=== PATIENT | male | born 1940 | race Caucasian/White ===

== ENCOUNTER 2016-04-02 07:55 | Emergency (ER) | payer MEDICARE, OTHER ==
[~2016-04-02] VITALS: Ht 162.6 cm; Wt 68.0 kg
[2016-04-02 07:59] VITALS: Ht 162.6 cm; Wt 68.0 kg
--- NOTE | 2016-04-02 08:57 | RADRPT ---
PROCEDURE: XR Chest 1 View. CLINICAL INDICATION: Cough TECHNIQUE: AP view of the chest were obtained. COMPARISON: None. FINDINGS: The heart size is within normal limits. Calcified atherosclerosis is noted in the aorta. The lungs are hyperexpanded. No consolidations are identified. No pneumothorax is seen. Atelectasis is noted at the lung bases. Osseous structures are intact. IMPRESSION: Calcified atherosclerosis in the aorta. Hyperexpanded lungs. Minimal atelectasis at the lung bases. RPTAT: AA .Juan Dunlap MD, MD Date Time Electronically viewed and signed by .Juan Dunlap MD, MD on 04/02/2016 08:56 .P/
[2016-04-02] MEDS ORDERED: BENZ100C70 PO (09:06)
[2016-04-02] MEDS ORDERED: ACET500C5 PO (09:07)
[2016-04-02] MEDS ORDERED: AZIT250T94 PO (09:08)
--- NOTE | 2016-04-02 09:37 | ERD ---
ER Documentation Chief Complaint Date/Time DATE: 04/02/16 TIME: 09:32 Chief Complaint SORE THROAT X 1 WEEK HPI Patient is a 75-year-old male who presents to the ED for sore throat and productive and dry cough for 1 week. He states that he went out into the rain a week ago and got wet and states that he developed a runny nose and cough after that. He denies fever or chills. He denies headache, ear pain, dizziness or weakness. He denies chest pain, shortness of breath or difficulty breathing. He denies leg pain or swelling. He also states that he has abdominal pain when he coughs. He states that his symptoms have been going on with his cough. He denies nausea, vomiting, diarrhea or constipation. He has had bowel movements daily and is passing gas. He denies urinary symptoms. Denies hemoptysis or night sweats. ROS All systems reviewed and are negative except as per history of present illness. Medications Home Meds Active Scripts Azithromycin* (Zithromax*) 250 Mg Tablet, 250 MG PO .RuslanPACK DIRECTED, #6 TAB TAKE 500 MG (2 TABS) THE FIRST DAY THEN 250 MG (1 TAB) DAYS 2-5 Prov:SEBASTIÁN OCONNOR-C 04/02/16 Acetaminophen* (Tylophen*) 500 Mg Capsule, 1 CAP PO Q6H Y for PAIN AND OR ELEVATED TEMP, #20 CAP Prov:SEBASTIÁN OCONNOR-C 04/02/16 Benzonatate* (Tessalon Perle*) 100 Mg Capsule, 100 MG PO Q8H Y for COUGH for 14 Days, CAP Prov:SEBASTIÁN OCONNOR-C 04/02/16 PMhx/Soc History of Surgery: Yes (hernia) Anesthesia Reaction: No Hx Neurological Disorder: No Hx Respiratory Disorders: No Hx Cardiac Disorders: Yes (htn) Hx Psychiatric Problems: No Hx Miscellaneous Medical Probl: Yes (dm) Hx Alcohol Use: No Hx Substance Use: No Hx Tobacco Use: No Smoking Status: Never smoker Physical Exam Vitals Vital Signs Date Time Temp Pulse Resp B/P Pulse Ox O2 Delivery O2 Flow Rate FiO2 04/02/16 07:59 97.7 99 18 142/76 95 Physical Exam GENERAL: Well-developed, well-nourished male. Appears in no acute distress. HEAD: Normocephalic, atraumatic. EYES: Pupils are equally reactive bilaterally. EOMs grossly intact. No conjunctival erythema. ENT: Moist mucous membranes. No uvula deviation. No kissing tonsils. No exudates. NECK: Supple. No lymphadenopathy or thyromegaly. No meningismus. negative kernig. negative brudinski. LUNG: Clear to auscultation bilaterally. No rhonchi, wheezing, rales or coarse breath sounds. HEART: Regular rate and rhythm. No murmurs, rubs or gallops. ABDOMEN: No scars, ecchymosis or rashes noted. Soft, nontender, and nondistended. Positive bowel sounds in all four quadrants. No rebound tenderness , no guarding. (-) McBurneys point tenderness. No CVA tenderness. BACK: No midline tenderness. Extremities: Equal pulses bilaterally. No peripheral clubbing, cyanosis or edema. No unilateral leg swelling. NEUROLOGIC: Alert and oriented. Moving all four extremities. 5/5 strength in all extremities. Normal speech. Steady gait. SKIN: Normal color. Warm and dry. No rashes or lesions. Capillary refill < 2 seconds Procedures/MDM ER COURSE: I kept the patient and/or family informed of laboratory and diagnostic imaging results throughout the emergency room course. EKG, MONITORS, & DIAGNOSTIC IMAGING: [place] [id number] Radiology Main Line: [phone] DIAGNOSTIC IMAGING REPORT Patient: ANNBAELLA RUSSELL : 1940 Age: 75 Sex: M MR #: [id number] DOS: 04/02/16 0832 Ordering MD: SEBASTIÁN OCONNOR PA-C Location: [facility] Room/Bed: PROCEDURE: XR Chest 1 View. CLINICAL INDICATION: Cough TECHNIQUE: AP view of the chest were obtained. COMPARISON: None. FINDINGS: The heart size is within normal limits. Calcified atherosclerosis is noted in the aorta. The lungs are hyperexpanded. No consolidations are identified. No pneumothorax is seen. Atelectasis is noted at the lung bases. Osseous structures are intact. IMPRESSION: Calcified atherosclerosis in the aorta. Hyperexpanded lungs. Minimal atelectasis at the lung bases. RPTAT: AA .Juan Dunlap MD, MD Date Time Electronically viewed and signed by .Juan Dunlap MD, MD on 04/02/2016 08:56 .P/ CC: SEBASTIÁN OCONNOR PA-C MEDICAL DECISION MAKING: This is a 75-year-old male who presents with cough, sore throat. Vital signs were reviewed. Patient is afebrile. Patient is not hypoxic. Patient is not toxic or ill-appearing. Temperature 97.7, blood pressure 142/76. Patient has a URI, bacterial versus viral. Low suspicion for pneumonia, PE, pneumothorax, ACS, epiglottitis, obstruction, TB, pertussis, meningitis, sepsis low suspicion for peritonsillar abscess, strep pharyngitis, mononucleosis, dental abscess. His abdominal pain is likely related to his cough, likely muscoskeletal of origin. I do not think a CT scan or blood work is warranted at this time for his abdominal pain as he has generalized non focal tenderness, afebrile and no nausea, vomiting, diarrhea or constipation. Low suspicion for ACS, AAA, perforated ulcer, bowel obstruction, cholecystitis, choledocholithiasis, cholangitis, pancreatitis, hepatic abscess, appendicitis, diverticulitis. DISCHARGE: At this time, patient is stable for discharge and outpatient management with no new complaints during the ER course. Patient was sent home with azithromycin, Tylenol, Tessalon Perles. Patient will be discharged home with instructions to recheck for new or worsening symptoms such as fever, nausea, weakness, LOC and to follow up with primary care in the next 1-2 days. Patient was advised to return to the ER for any new or worsening symptoms. Plan was discussed and patient and/or family understands and agrees. Home instructions were given. Departure Diagnosis: Primary Impression: Pharyngitis Pharyngitis/tonsillitis etiology: unspecified etiology Qualified Code: J02.9 - Pharyngitis, unspecified etiology Condition: Stable Patient Instructions: Pharyngitis, Viral Additional Instructions: Llame al doctor PAWEL dong jerilyn CHIDI PARA DENTRO DE 1-2 RAMIREZ.Dgale a la secretaria que nosotros le instruimos hacer esta chidi.Avise o llame si garcia condicin se empeora antes de la chidi. Regresa aqui si peor o no mejor. SEBASTIÁN OCONNOR PA-C Apr 02, 2016 09:37 SEBASTIÁN OCONNOR PA-C Apr 02, 2016 09:37
== END 2016-04-02 10:01 | disposition home or self-care (01) ==
LOC: FTE 07:55
DX: J02.9 Acute pharyngitis, unspecified (principal); E11.9 Type 2 diabetes mellitus without complications; I10 Essential (primary) hypertension
CPT/HCPCS: 71010